=== PATIENT | male | born 1935 | race Caucasian/White ===

== ENCOUNTER → 2017-02-22 | Outpatient (CLI) | payer MEDICARE, OTHER ==
[~2017-02-22] MED LIST: IOHEXOL 300 MG/ML 75ml INJECTION ONE; NORMAL SALINE 100 ML ONE; SALINE FLUSH 10ml SYRINGE ONE
[2017-02-22 09:23] LABS: HCT - HEMATOCRIT 39.8 % (41-53); HGB - HEMOGLOBIN 13.4 GM/DL (13.5-17.5); MEAN CORPUSCULAR HGB 30.2 UUG (26-34); MEAN CORPUSCULAR HGB CONC(MCHC 33.7 GM/DL (31-37); MEAN CORPUSCULAR VOLUME 89.8 UM3 (80-100); MEAN PLATELET VOLUME 9.2 UM3 (9.4-12.4); RED BLOOD COUNT 4.43 M/MM3 (4.50-5.90); WBC - WHITE BLOOD COUNT 7.9 T/MM3 (4.5-11.0)
[2017-02-22 09:33] LABS: ALBUMIN/GLOBULIN RATIO 1.5 RATIO (1.1-2.2); ALKALINE PHOSPHATASE 64 U/L (38-126); ALT (SGPT) 22 U/L (21-72); ANION GAP 11 MEQ/L (5-15); AST (SGOT) 23 U/L (17-59); BUN/CREATININE RATIO 15 RATIO (6-26); CALCIUM 9.6 MG/DL (8.4-10.2); CHLORIDE 106 MEQ/L (98-107); CO2 - CARBON DIOXIDE 29 MEQ/L (22-30); CREATININE 1.3 MG/DL (0.8-1.5); GLOMERULAR FILTRATION RATE 53; GLUCOSE 79 MG/DL (75-110); POTASSIUM 4.5 MEQ/L (3.6-5); SODIUM 146 MEQ/L (134-144); TOTAL PROTEIN 6.7 G/DL (6.3-8.2)
[2017-02-22 09:44] LABS: BAND NEUTROPHILS # 0.2 T/MM3; EOSINOPHILS # (MANUAL) 0.2 T/MM3 (0-0.5); LYMPHOCYTES # (MANUAL) 2.1 T/MM3 (1-4.8); MONOCYTES # (MANUAL) 0.8 T/MM3 (0-0.8); NEUTROPHILS #(MANUAL)-ABSOLUTE 4.5 T/MM3 (1.8-7.7); TOTAL CELLS COUNTED 100 %
--- NOTE | 2017-02-22 11:53 | DI ---
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 Automated Exposure Control and Iterative Reconstruction dose reducing techniques were utilized. Findings: Chest: There are postoperative changes of partial pneumonectomy in the left lung apex with bilateral apical pleural scarring, left greater than right. The lungs are perhaps mildly emphysematous. No definite mediastinal or hilar adenopathy. No pleural effusion. Heart size is normal. No definite skeletal metastasis. The great vessels arise from the aorta and a normal manner. 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 Abdomen: The liver and spleen enhance homogeneously. Adrenal glands are normal. The kidneys demonstrate simple appearing bilateral renal cortical cysts. No definite hydronephrosis or perinephric stranding. The gallbladder is nondistended but there may be some internal sludge/debris with thickening of the gallbladder wall. There is dense calcific atherosclerotic disease of the abdominal aorta without aneurysmal dilation. The pancreas is homogeneous with some calcifications in the pancreatic head which may suggest chronic pancreatitis. Impression: Postoperative changes of left pneumonectomy. No definite metastasis or adenopathy. Mild thickening of the gallbladder wall with possible internal debris or noncalcified gall stones. .
== END ==
LOC: IMA 09:06
PROVIDERS: ATTEND Internal Medicine Medical Oncology
DX: C34.32 Malignant neoplasm of lower lobe, left bronchus or lung (principal); K82.8 Other specified diseases of gallbladder; Z90.2 Acquired absence of lung [part of]; Z92.21 Personal history of antineoplastic chemotherapy
CPT/HCPCS: 36415; 71260; 74160; 80053; 82378; 85007; 85027; J7050; Q9967